=== PATIENT | female | born 1945 ===

== ENCOUNTER 2016-06-25 10:16 | Outpatient (RCR) | payer MEDICARE, MEDICAID | END 2016-07-08 | disposition home or self-care (01) | LOC: WCC 10:16 | DX: E08.21 Diabetes mellitus due to underlying condition with diabetic nephropathy (principal); Z89.411 Acquired absence of right great toe; I10 Essential (primary) hypertension; N18.9 Chronic kidney disease, unspecified | CPT/HCPCS: G0463 ==